=== PATIENT | male | born 1965 | race Two or more races ===

== ENCOUNTER → 2020-01-27 | Outpatient (CLI) | payer BC | END | disposition home or self-care (01) | LOC: LABWHC1 12:07 | PROVIDERS: ATTEND Family Medicine | DX: J02.9 Acute pharyngitis, unspecified (principal); R19.7 Diarrhea, unspecified | CPT/HCPCS: 87635 ==

== ENCOUNTER → 2022-07-13 | Outpatient (CLI) | payer BC ==
--- NOTE | 2022-07-13 14:25 | XR ---
Right knee HISTORY: Pain 3 views the right knee Patient is status post right knee arthroplasty. There is anatomic alignment. Bone mineralization is r educed. No fracture or dislocation. There is likely cement within the distal femoral metaphysis, [place] elate with surgical note. IMPRESSION: Postop findings.
== END | disposition home or self-care (01) ==
LOC: RADXRYALE 13:38
PROVIDERS: ATTEND Physician Assistant Medical
DX: M25.561 Pain in right knee (principal)